=== PATIENT | female | born 1950 | race Caucasian/White ===

== ENCOUNTER → 2017-09-15 | Outpatient (CLI) | payer MEDICARE, OTHER ==
--- NOTE | 2017-09-15 16:28 | CT ---
EXAM DESCRIPTION: Head: Computed Tomography. CLINICAL HISTORY: Dizziness and giddiness COMPARISON: None. TECHNIQUE: Non-helical axial scans through the skull and brain, at 2.5 mm intervals, non-contrast. Coronal and sagittal 2.0 mm reconstructions. Total Exam DLP: 752.48 mGy-cm. This exam was performed according to our departmental dose-optimization program which includes automated exposure control, adjustment of the mA and/or kV according to patient size and/or use of iterative reconstruction technique; to reduce radiation dose to as low as reasonably achievable (ALARA). FINDINGS: No hemorrhage, no mass-effect, and no midline shift. Normal ray-white matter differentiation. No abnormal radiodense material in the brain parenchyma. Vascular calcifications noted in; physiologic calcifications in the pineal gland and choroid plexus. No effacement or displacement of the ventricles, CSF spaces, or subdural spaces. No extra axial fluid collection or hemorrhage. No gross abnormalities of the bony calvarium. Thickening of the inner table of the frontal bones is symmetric. Prior medial antrectomy maxillary sinus with multiple sinus cavities demonstrating mucoperiosteal thickening. Possible air-fluid levels in the frontal sinuses. IMPRESSION: 1. No hemorrhage, no mass effect, no midline shift. Normal CT scan of the brain without IV contrast. 2. CT scans are insensitive for detecting small CVAs in the first 24 hours after onset. Evaluation of the brain stem is also limited. If symptoms persist, consider NON-EMERGENT MRI scan of the brain with diffusion imaging. 3. Hyperostosis frontalis interna is seen commonly in elderly women. 4. Diffuse paranasal sinus disease. Electronically signed by: Karthik Hudson MD 09/15/2017 4:27 PM CDT
== END ==
LOC: CT 13:33
PROVIDERS: ATTEND General Practice
DX: R42 Dizziness and giddiness (principal); H93.19 Tinnitus, unspecified ear